=== PATIENT | male | born 1980 | race Caucasian/White ===

== ENCOUNTER → 2016-03-27 | Outpatient (CLI) | payer BC | LOC: GMAM 10:24 | PROVIDERS: ATTEND Family Medicine | DX: R53.83 Other fatigue (principal); Z12.5 Encounter for screening for malignant neoplasm of prostate ==

== ENCOUNTER → 2016-03-31 | Outpatient (CLI) | payer BC | LOC: GMAM 11:02 | PROVIDERS: ATTEND Family Medicine | DX: R94.5 Abnormal results of liver function studies (principal) ==

== ENCOUNTER → 2016-04-02 | Outpatient (CLI) | payer BC ==
--- NOTE | 2016-04-02 13:21 | US ---
EXAM DESCRIPTION: US LIVER CLINICAL HISTORY: 35 y/o M, ELEVATED LFTS COMPARISON: None. FINDINGS: Grayscale and color Doppler imaging of the liver, gallbladder and pancreas was performed. Static images were saved to patient's medical record. The liver is echogenic and enlarged measuring 19 cm in diameter. No mass noted. No intra or extrahepatic biliary duct dilatation. The gallbladder is present and is unremarkable. No evidence of cholelithiasis. Negative sonographic Walters's sign. The common bile duct measures 6 mm in diameter. The pancreas is poorly visualized due to overlying bowel gas. IMPRESSION: There is hepatomegaly and increased echogenicity of the liver. These findings are likely due to fatty infiltration. The remaining study is unremarkable. Electronically signed by: Rangel Sanchez MD 04/02/2016 13:18
== END ==
LOC: US 09:20
PROVIDERS: ATTEND Family Medicine
DX: R94.5 Abnormal results of liver function studies (principal); R16.0 Hepatomegaly, not elsewhere classified

== ENCOUNTER → 2016-04-03 | Outpatient (CLI) | payer BC | LOC: GMAM 15:14 | PROVIDERS: ATTEND Family Medicine | DX: K76.0 Fatty (change of) liver, not elsewhere classified (principal) ==

== ENCOUNTER → 2018-10-18 | Outpatient (CLI) | payer BC | LOC: GMAM 11:39 | PROVIDERS: ATTEND Family Medicine | DX: Z12.5 Encounter for screening for malignant neoplasm of prostate (principal) ==